=== PATIENT | female | born 2000 | race American Indian/Alaskan Native ===

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

== ENCOUNTER 2021-10-31 12:23 | Outpatient (CLI) | payer MEDICAID ==
[2021-10-31] MEDS ORDERED: LACTATED RINGERS 500 ML IV ONE (13:30)
[2021-10-31 13:57] LABS: Hematocrit 29.9 % (30.3-42.9); Hemoglobin 9.5 gm/dl (10.1-14.3); Mean Corpuscular HGB Conc 32 % (30-34); Mean Corpuscular Volume 78 fl (79-97); Platelet Count 196 K/mm3 (140-440); Red Blood Count 3.84 M/mm3 (3.65-5.03); Red Cell Distribution Width 13.4 % (13.2-15.2)
[2021-10-31 14:18] LABS: Alanine Aminotransferase 19 units/L (7-56); Albumin 3.9 g/dL (3.9-5); Blood Urea Nitrogen 4 mg/dL (7-17); Calcium 8.9 mg/dL (8.4-10.2); Hemolysis Index 3
[2021-10-31 14:21] LABS: BUN/Creatinine Ratio 7
--- NOTE | 2021-10-31 14:25 | Ultrasound Report ---
ULTRASOUND BIOPHYSICAL PROFILE INDICATION: C/O CONTRACTIONS - 30.5 WEEKS GESTATION. COMPARISON: None available. FINDINGS: BREATHING MOVEMENT = 2 GROSS BODY MOVEMENT = 2 TONE = 2 QUALITATIVE AMNIOTIC FLUID VOLUME = 2 TOTAL BIOPHYSICAL SCORE = 05/20 AMNIOTIC FLUID INDEX (cm) = not calculated largest pocket measuring 3.7 cm PRESENTATION: Cephalic. HEART RATE (beats per minute): 157 IMPRESSION: 1. biophysical profile = 05/20 Signer Name: Jeffry Epps MD Signed: 10/31/2021 2:20 PM Workstation Name: [id number]
[2021-10-31 15:54] VITALS: BP 78/47
[2021-10-31 17:21] LABS: Bilirubin,Urine NEG (Negative); Blood,Urine NEG (Negative); Color,Urine Amber (Yellow); Mucus,Urine 3+ /HPF; WBC,Urine < 1.0 /HPF (0.0-6.0)
[2021-10-31 17:28] LABS: Amphetamine Screen,Urine Negative; Benzodiazepines Screen,Urine Negative; Cannabinoid Screen,Urine Negative; Cocaine Screen,Urine Negative; Methadone Screen,Urine Negative; Opiate Screen,Urine Negative
== END 2021-10-31 18:27 | disposition home or self-care (01) ==
LOC: TRG 12:23 → APU 12:24 → TRG 18:27
PROVIDERS: ATTEND Obstetrics & Gynecology
DX: Z34.93 Encounter for supervision of normal pregnancy, unspecified, third trimester (principal); Z3A.29 29 weeks gestation of pregnancy
CPT/HCPCS: 36415; 59025; 76819; 80053; 80307; 81001; 85027